=== PATIENT | male | born 1995 | race Caucasian/White ===

== ENCOUNTER 2018-02-09 19:44 | Emergency (ER) | payer OTHER ==
[2018-02-09] MEDS: fentaNYL CITRATE/PF 100 MCG/ 2ML AMP IVP ONE ×2 (20:00→20:29)
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
[2018-02-09] MEDS: HYDROmorphone HCL/PF 1 MG/ML DISP.SYRIN IVP ONE (21:10)
[2018-02-09] MEDS: MIDAZOLAM HCL 5 MG/5 ML VIAL IVP ONE (21:16)
[2018-02-09] MEDS: 0.9 % SODIUM CHLORIDE 1,000 ML IV ONE ×2 (21:30→22:19)
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
--- NOTE | 2018-02-09 21:44 | Diagnostic Imaging Report ---
CHRISTIANE ABRAMS (NETWORKS COMPUTER CONSULTANT) - ER [facility] [address] [address] Report Submission Date: Feb 09, 2018 9:43:23 PM CDT Patient Study Name: NATANAEL JOHNSON Date: Feb 09, 2018 9:20:09 PM CDT Modality Type: DX Gender: M Description: SHOULDER : 89 Institution: [facility] Physician: CHRISTIANE ABRAMS (NETWORKS COMPUTER CONSULTANT) - ER Left shoulder two views History: Post reduction of shoulder dislocation Findings: The left glenohumeral joint has been reduced to anatomic alignment. A Hill-Sachs impaction fracture of the humeral head is unchanged. Electronically signed on Feb 09, 2018 9:43:23 PM CDT by: Kevin PHAM
[2018-02-09] MEDS: HYDROmorphone HCL/PF 2 MG/ML DISP.SYRIN ONE (22:10)
[2018-02-09] MEDS: KETOROLAC TROMETHAMINE 30 MG/1ML VIAL IVP ONE (22:10)
[2018-02-09] MEDS: HYDROcodone /APAP 5/325 1 EACH TABLET PO ONE (22:26)
[2018-02-09] MEDS: DIPH,PERTUSS(ACELL),TET VAC/PF 0.5 ML DISP.SYRIN IM ONE (22:49)
[2018-02-09 23:05] VITALS: BP 148/82
== END 2018-02-09 22:34 | disposition home or self-care (01) ==
LOC: ED 19:44
DX: S43.005A Unspecified dislocation of left shoulder joint, initial encounter (principal); S42.292A Other displaced fracture of upper end of left humerus, initial encounter for closed fracture; V86.59XA Driver of other special all-terrain or other off-road motor vehicle injured in nontraffic accident, initial encounter; Y92.9 Unspecified place or not applicable; Y93.9 Activity, unspecified; Y99.9 Unspecified external cause status
CPT/HCPCS: 70450; 72125; 73030; A9270; J1170; J1885; J2250; J3010; J7030; 23650; 96365; 96375; 96376; S1016